=== PATIENT | female | born 1940 | race African-American/Black ===

== ENCOUNTER 2017-05-05 13:31 | Emergency (ER) | payer OTHER, BC ==
[~2017-05-05] VITALS: Ht 160 cm; Wt 90.3 kg
--- NOTE | ~2017-05-05 | EKG ---
[address] [place] [address] ELECTROCARDIOGRAM REPORT Name: ANNETTE ISABEL Room #: [facility]#: [id number] Admission: 05/05/17 Attend Phys: Discharge: 05/05/17 Date of : 44 Report #: [id number] THIS REPORT FOR: //name// [facility] ED Test Date: 2017-05-05 Test Time: 13:50:24 Pat Name: ANNETTE ISABEL Department: Room: Gender: F Wastewater Plant Operator: GLADIS : 1940 Requested By: Bailey Newsome Order Number: [id number] MD: Rigoberto Adams Measurements Intervals [place] Rate: 107 P: 41 AR: 167 QRS: 13 QRSD: 74 T: 31 QT: 365 QTc: 487 Interpretive Statements Sinus tachycardia Poor R wave progression Compared to ECG 02/18/2014 11:19:56 No previous ECGs available for comparison Electronically Signed On 05-06-2017 14:35:10 FILM EDITOR SUPERVISOR by Rigoberto Adams [email or web address] <ELECTRONICALLY SIGNED> By: Rigoberto Adams MD, [facility] 05/06/17 1435 1350 1350 Rigoberto Adams MD, FAC /EPI
[~2017-05-05 13:31] MED LIST: AMITRIPTYLINE H10 M3 PO; AMITRIPTYLINE H25 M2 PO; AMLODIPINE BESY10 MG PO; CENTRUM SILVER1 EAC4 PO; GLUCOPHAGE1000 MG PO; KEFLEX500 M1 PO; KLOR-CON 1010 MEQ PO; LACTINEX CHEWA1 EACH PO; LEVOTHYROXIN0.025 MG PO; LEXAPRO 10 MG T10 M1 PO; LOPRESSOR50 PO; MAGOX 400400 MG PO; METFORMIN HCL500 MG PO; NAPROSYN500 MG PO; NIFEDICAL XL60 MG PO; OMEPRAZOLE20 M2 PO; PRAVACHOL40 MG PO; TOPROL XL50 MG PO; ZESTORETIC 20-1 EAC3 PO
[2017-05-05] MEDS ORDERED: GLUCOPHAGE XR500 MG PO (13:49)
[2017-05-05 14:07] LABS: ABSOLUTE NEUTROPHILS 10.2 thou/uL (1.4-8.2); BASOPHILS 0.5 % (0.0-2.0); EOSINOPHILS 0.6 % (0.0-3.0); HEMATOCRIT 37.4 % (37.0-47.0); HEMOGLOBIN 12.5 gm/dL (12.0-15.0); LYMPHOCYTES 9.5 % (24.0-44.0); MCH 30.3 pg (26.0-34.0); MCHC 33.3 g/dL (28.0-37.0); MCV 91.1 fL (80.0-100.0); MONOCYTES 6.7 % (1.0-8.0); PLATELET COUNT 242 thou/uL (150-400); POLYS 82.7 % (36.0-66.0); RBC 4.11 mil/uL (4.20-5.00); RDW 13.6 % (10.5-14.5); WBC 12.3 thou/uL (4.0-11.0)
[2017-05-05 14:17] LABS: ANION GAP 9 mmol/L (7-16); BUN 22 mg/dL (7-18); CALCIUM 9.9 mg/dL (8.5-10.1); CHLORIDE 101 mmol/L (98-107); CO2 31 mmol/L (21-32); CREATININE 1.4 mg/dL (0.6-1.0); GLUCOSE 177 mg/dL (74-106); POTASSIUM 3.1 mmol/L (3.5-5.1); SODIUM 141 mmol/L (136-145)
[2017-05-05 14:26] LABS: TROPONIN-I < 0.04 ng/mL (<0.06)
[2017-05-05 14:42] LABS: URINE BILIRUBIN 1+ (Negative); URINE BLOOD NEGATIVE (Negative); URINE CLARITY CLEAR; URINE COLOR YELLOW; URINE GLUCOSE-RANDOM* NEGATIVE (Negative); URINE KETONES TRACE (Negative); URINE LEUKOCYTES TRACE (Negative); URINE NITRITE NEGATIVE (Negative); URINE PROTEIN (DIPSTICK) 2+ (Negative); URINE SPECIFIC GRAVITY >= 1.030 (1.005-1.035); URINE UROBILINOGEN 0.2 E.U./dl (0.2-1.0)
[2017-05-05 14:43] LABS: ICTOTEST (BILI CONFIRMATORY) Negative (Negative)
[2017-05-05 14:54] LABS: CRYSTALS None Seen /LPF (None Seen); HYALINE CASTS 0-3 Few /LPF (None Seen); SQUAMOUS 4-10 Moderate /LPF (0-3)
[2017-05-05 14:55] LABS: BACTERIA >30 Many /HPF (None Seen); URINE RBC None Seen /HPF (0-2); URINE WBC 0-5 Rare /HPF (0-5)
[2017-05-05] MEDS ORDERED: ZOFRAN ODT4 MG PO (15:11)
[2017-05-05] MEDS ORDERED: KEFLEX500 M1 PO (15:11)
[2017-05-05 16:06] VITALS: BP 140/71
[2017-05-19] MEDS ORDERED: ASPIR 8181 MG PO (14:04)
[2017-05-19] MEDS ORDERED: MOBIC7.5 MG PO (14:42)
[2017-09-14] MEDS ORDERED: TRAMADOL 50 MG50 MG PO (13:48)
[2017-12-01] MEDS ORDERED: IRON325 PO (13:22)
[2017-12-01] MEDS ORDERED: HYDROCODON-ACE1 EAC7 PO (14:36)
== END 2017-05-05 16:07 | disposition home or self-care (01) ==
LOC: ER 13:31
PROVIDERS: Emergency Medicine
DX: I95.1 Orthostatic hypotension (principal); E87.6 Hypokalemia; N39.0 Urinary tract infection, site not specified; E11.9 Type 2 diabetes mellitus without complications; I10 Essential (primary) hypertension

== ENCOUNTER → 2017-05-19 | Outpatient (CLI) | payer OTHER, BC ==
[~2017-05-19] VITALS: Ht 160 cm; Wt 90.2 kg
[~2017-05-19] MED LIST changes: +ASPIR 8181 MG PO; +GLUCOPHAGE XR500 MG PO; +HYDROCODON-ACE1 EAC7 PO; +IRON325 PO; +MOBIC7.5 MG PO; +TRAMADOL 50 MG50 MG PO; +ZOFRAN ODT4 MG PO
--- NOTE | ~2017-05-19 | HPC ---
[facility] [place] [address] [address] [place] [address] PAIN MANAGEMENT CONSULTATION Name: ANNETTE ISABEL [facility] [id number] Admission: 05/19/17 Attend Phys: Robbin Reinoso DO Discharge: Date of : 42 Report #: [id number] THIS REPORT FOR: //name// CC: Lesly Reinoso HISTORY OF PRESENT ILLNESS: The patient is a pleasant 76-year-old female seen in consultation at the request of Dr. Daigle for assistance with management of chronic low back pain with an acute exacerbation sans trauma several months ago. She notes pain is in the low back and, right posterior leg down to her foot. She has subjective weakness and episodic paresthesia with pain radiating into the foot. She has been started on Elavil for this, which does seem to help. She denies bowel or bladder incontinence changes, though does note that she has some urinary stress incontinence. The patient has tried physical therapy, which ended in February. She was going to the pool 3 times a week, but with this cold weather the past month or so, she has not been doing this. She notes the pain is exacerbated with standing and walking and some relief when she is recumbent. She notes the pain is periodic, aching, crushing and pulling. She rates it 7-8 on a visual analog scale. REVIEW OF SYSTEMS: Complete review of systems attached to the chart and gone over with the patient. She is . She does not smoke or drink alcohol to excess. History of dyslipidemia for which she takes statin type medication. Non-insulin dependent diabetes for which she takes metformin, she is unsure of her hemoglobin A1c status. Hypertension, on multiple medications including metoprolol, amlodipine and lisinopril. Levothyroxine for hypothyroidism, omeprazole p.r.n. for gastroesophageal reflux, Lexapro which she actually takes pretty much p.r.n. as well. Elavil as noted in the chief complaint for diabetic peripheral neuropathy. The patient is retired in the year 1999. Pain impact score is 31/70. PHYSICAL EXAMINATION: This is a 5 feet 3 inches, 200 pounds female, BMI is 35.2 kilograms per meter squared. Subjective pain score is 7 on a VAS at present. She has not fallen in the last 3 months. Cranial nerves 2-12 are grossly intact. Pupils are equal, react to light and accommodation. Extraocular muscles are intact. Thyroid is modestly enlarged, no nodules are noted. She is alert and oriented to person, place and time, judged to be a reasonable historian. Upper extremity strength is preserved. Heart is regular and rhythmical without murmur. Lungs: Clear to auscultation. Has a mildly antalgic gait. Straight leg raise is positive at 30 degrees on the right. Right hip flexion and lower extremity extension strength as well as dorsiflexion strength is limited to 3/5. All other muscles about 4-5 to objective testing. Patellar reflexes are brisk at 2+/4 and symmetric. Achilles reflex is absent on the right and 1/4 in the left. [address] [address] PAIN MANAGEMENT CONSULTATION Name: ANNETTE ISABEL [id number] Admission: 05/19/17 Attend Phys: Robbin Reinoso DO Discharge: Date of : 42 Report #: [id number] DIAGNOSTIC STUDIES: Include MRI from 05/10/2017 noting L5-S1 to have mild reactive edema anteriorly and laterally across the disk space. There is a small circumferential disk bulge here resulting in right greater than left neural foraminal narrowing. ASSESSMENT: Symptomatic lumbar radiculopathy by clinical exam and history, right L5 radicular pattern. RECOMMENDATION: We will start the patient on meloxicam 7.5 b.i.d. We talked about moving forward with epidural injection under fluoroscopy right of midline L5-S1. We will try conservative therapy first. Recommend the patient return to physical therapy including her water aerobics. Follow up in 2 weeks if symptoms continue unabated on the nonsteroidal anti-inflammatory agent. We will move forward with epidural injection at that time. Thank you for allowing me to participate in the patient's care. I will keep you abreast of her progress. <ELECTRONICALLY SIGNED> By: Robbin Reinoso DO 05/24/17 0725 1557 0449 Robbin Reinoso DO /nt
[2017-05-19 14:04] VITALS: BP 164/115
== END ==
LOC: PAIN 07:24
DX: M54.16 Radiculopathy, lumbar region (principal)

== ENCOUNTER → 2017-07-21 | Outpatient (CLI) | payer OTHER, BC ==
[~2017-07-21] VITALS: Ht 160 cm; Wt 89.7 kg
[~2017-07-21] MED LIST changes: -HYDROCODON-ACE1 EAC7 PO; -IRON325 PO; -TRAMADOL 50 MG50 MG PO
--- NOTE | ~2017-07-21 | HPC ---
[facility] [place] [address] [place] [address] PAIN MANAGEMENT CONSULTATION Name: ANNETTE ISABEL [facility] [id number] Admission: 07/21/17 Attend Phys: Robbin Reinoso DO Discharge: Date of : 42 Report #: [id number] THIS REPORT FOR: //name// CC: Lesly Reinoso The patient is a 36-year-old female, prior seen 06/23/2017, diagnosed with lumbar radiculopathy. We did an epidural injection at that time. Unfortunately, this really afforded only nominal relief. She notes pain continues to be problematic, rates it a 10/10. It is in the right low back and buttock though on further discussion, she states it is in her leg, but relates only in the very proximal aspect of the right leg. Lower extremity strength is preserved. Straight leg raise is equivocal, but Marquise test is grossly positive on the right side. Very tender over the right SI area. Positive Gaenslen's test on this side. Again, lower extremity strength is otherwise symmetric. PHYSICAL EXAMINATION: Blood pressure is elevated at 129/103, pulse 108, respirations 16. Otherwise, physical exam is unchanged. ASSESSMENT: Symptomatic sacroiliac mediated pain. The patient had no relief with epidural injection in the past. RECOMMENDATION: 1. We will refer to physical therapy for core strengthening exercises. 2. Right SI joint injection under fluoroscopy. 3. Follow up in 3 weeks to reevaluate. ASSESSMENT: Symptomatic right sacroiliac joint pain, lumbosacral spondylosis without myelopathy. PROCEDURE: After written informed consent was obtained, the patient was taken to the fluoroscopy suite and placed in prone position. After sterile prep and drape, skin wheal was raised. A 22-gauge stylet needle was placed to contact the inferior aspect of the right SI joint. Negative aspiration was accomplished. A 0.5 mL of Omnipaque injected, which showed spread within the joints. This was followed with 40 mg triamcinolone plus 2 mL of 0.5% preservative-free bupivacaine. Needle was removed, area was cleansed, Band-Aids applied. The patient was monitored for an appropriate period of time, discharged in good and stable condition, noting dramatic improvement of baseline pain, in fact noting pain was absent on her right SI area. We will plan on moving forward with physical therapy. Follow up in 3 weeks for reevaluation, cancel if doing well. [address] [address] PAIN MANAGEMENT CONSULTATION Name: ANNETTE ISABEL Room #: REG [facility] [place]#: [id number] Admission: 07/21/17 Attend Phys: Robbin Reinoso DO Discharge: Date of : 42 Report #: [id number] Fluoroscopy time was under 15 seconds. <ELECTRONICALLY SIGNED> By: Robbin Reinoso DO 07/24/17 0943 0924 1304 Robbin Reinoso DO /varinder
[2017-07-21 14:11] VITALS: BP 129/103
== END | disposition home or self-care (01) ==
LOC: PAIN 07:21
DX: M53.3 Sacrococcygeal disorders, not elsewhere classified (principal); M47.817 Spondylosis without myelopathy or radiculopathy, lumbosacral region

== ENCOUNTER → 2017-09-14 | Outpatient (CLI) | payer OTHER, BC ==
[~2017-09-14] VITALS: Ht 160 cm; Wt 90.4 kg
[~2017-09-14] MED LIST changes: +TRAMADOL 50 MG50 MG PO
--- NOTE | ~2017-09-14 | HPC ---
[facility] [address] [address] [place] [address] PAIN MANAGEMENT CONSULTATION Name: ANNETTE ISABEL [facility] [id number] Admission: 09/14/17 Attend Phys: Robbin Reinoso DO Discharge: Date of : 42 Report #: [id number] THIS REPORT FOR: //name// CC: Lesly Reinoso DATE OF SERVICE: 09/14/2017 The patient is a very pleasant 76-year-old female. She was originally seen in consultation on 05/19/2017. We trialed some meloxicam with no efficacy, midline epidural injection at L5-S1 with really dwindling efficacy as well. We did a right SI joint injection 07/21/2017, which did give good relief for about 6 weeks. Pain has begun to recur, but it is a little bit different. Pain is in the right low back, buttock, and leg, posterior aspect of the leg down to the foot. PHYSICAL EXAMINATION: Shows a 76-year-old female, BMI is 35.3 kg per meter squared. Vital signs are stable as noted in the EMR. Grossly positive straight leg raise on the right. Right leg shows diminished strength globally, about 3/5 to all muscle groups tested, about 4/5 on the contralateral left side. Right Achilles reflex is absent, 1/4 in the left. Patellar reflexes are generally symmetric, 1/4. She does have some pain with resistance to piriformis contraction on the right, though this is equivocal and not consistent. DIAGNOSTIC STUDIES: Include MRI from 05/10/2017 noting small circumferential disk bulge with neuroforaminal narrowing, right greater than left, L5-S1. ASSESSMENT: Symptomatic lumbar radiculopathy by clinical exam and history, right L5 radicular pain pattern. RECOMMENDATION: Right L5-S1 transforaminal epidural injection under fluoroscopy today, I have taken the liberty of writing for tramadol 50 mg p.r.n. needed for pain. Follow up in 2 weeks for evaluation. If she still has ongoing pain, we will consider EMG versus a neurosurgical consult. PROCEDURE: Right L5-S1 transforaminal lumbar epidural injection under fluoroscopy. PROCEDURE NOTE: After both written and informed consent to include risk of spinal cord damage, increased pain, weakness and dural puncture, the patient was taken to the fluoroscopy suite, placed in the prone position. After sterile prep and drape, a skin wheal with lidocaine was raised. A 22-gauge epidural Tuohy needle was inserted in the L5-S1 on the right with good loss to resistance. Negative aspiration for cerebrospinal fluid or blood was noted. Then 1 mL of Omnipaque under biplanar fluoroscopy showed good spread within the epidural space. This was followed with 60 mg of triamcinolone plus 1 mL of 1.5% [address] [address] PAIN MANAGEMENT CONSULTATION Name: ANNETTE ISABEL Room #: REG [facility]#: [id number] Admission: 09/14/17 Attend Phys: Robbin Reinoso DO Discharge: Date of : 42 Report #: [id number] preservative-free Xylocaine, 0.5 mL Xylocaine was then injected to flush the needle; it was removed. The patient was monitored for an appropriate period of time and discharged in good and stable condition. The patient was discharged in good and stable condition. Please note that her pain score was absent on discharge. <ELECTRONICALLY SIGNED> By: Robbin Reinoso DO 09/18/17 0710 1535 1958 Robbin Reinoso DO /nt
[2017-09-14 12:52] VITALS: BP 141/86
== END | disposition home or self-care (01) ==
LOC: PAIN 06:57
DX: M54.16 Radiculopathy, lumbar region (principal); G89.29 Other chronic pain; Z87.891 Personal history of nicotine dependence; Z87.440 Personal history of urinary (tract) infections; Z79.899 Other long term (current) drug therapy; Z79.82 Long term (current) use of aspirin; Z98.890 Other specified postprocedural states

== ENCOUNTER 2017-11-03 10:08 | Inpatient (IN) | payer OTHER, BC ==
[2017-11-03] VITALS (7 sets, daily range): BP systolic 115–167; BP diastolic 60–81
[~2017-11-03] VITALS: Ht 160 cm; Wt 88.5 kg
--- NOTE | ~2017-11-03 | EKG ---
[address] [employer] [place] [address] ELECTROCARDIOGRAM REPORT Name: ANNETTE ISABEL Room #: 456-P [facility] IN .R.#: [id number] Admission: 11/03/17 Attend Phys: Juan Meyer MD Discharge: Date of : 42 Report #: [id number] THIS REPORT FOR: //name// [facility] ED Test Date: 2017-11-03 Test Time: 10:49:06 Pat Name: ANNETTE ISABEL Department: Room: [facility] Gender: F Operations Consultant: nilsa : 1940 Requested By: April Bess Order Number: [id number] MD: Prem Mckeon Measurements Intervals [place] Rate: 104 P: 17 SC: 174 QRS: -2 QRSD: 80 T: 48 QT: 375 QTc: 494 Interpretive Statements Sinus tachycardia Abnormal R-wave progression, late transition LVH by voltage Borderline T abnormalities, anterior leads Compared to ECG 05/05/2017 13:50:24 Left ventricular hypertrophy now present T-wave abnormality now present Poor R-wave progression no longer present Electronically Signed On 11-03-2017 15:26:41 CDT by Prem Mckeon [email or web address] <ELECTRONICALLY SIGNED> By: Prem Mckeon MD 11/03/17 1526 1049 1049 Prem Mckeon MD /EPI
[2017-11-03 10:38] LABS: HEMATOCRIT 35.8 % (37.0-47.0); MCH 30.5 pg (26.0-34.0); MCHC 33.4 g/dL (28.0-37.0); MCV 91.4 fL (80.0-100.0); PLATELET COUNT 258 thou/uL (150-400); RBC 3.92 mil/uL (4.20-5.00); RDW 13.9 % (10.5-14.5); WBC 8.7 thou/uL (4.0-11.0)
[2017-11-03 10:48] LABS: ANION GAP 9 mmol/L (7-16); BUN 16 mg/dL (7-18); CALCIUM 10.2 mg/dL (8.5-10.1); CHLORIDE 100 mmol/L (98-107); CO2 29 mmol/L (21-32); CREATININE 1.4 mg/dL (0.6-1.0); GLUCOSE 266 mg/dL (74-106); SODIUM 138 mmol/L (136-145)
[2017-11-03 10:55] LABS: POTASSIUM 2.8 mmol/L (3.5-5.1)
[2017-11-03 10:57] LABS: ALBUMIN 4.1 g/dL (3.4-5.0); LIPASE 167 U/L (73-393); SGOT 16 U/L (15-37); SGPT 27 U/L (30-65); TOTAL BILIRUBIN 0.4 mg/dL (<0.1-1.0); TOTAL PROTEIN 7.9 g/dL (6.4-8.2); TROPONIN-I <0.06 ng/mL (<0.06)
[2017-11-03 11:24] LABS: URINE BILIRUBIN NEGATIVE (Negative); URINE BLOOD NEGATIVE (Negative); URINE CLARITY CLEAR; URINE COLOR YELLOW; URINE GLUCOSE-RANDOM* NEGATIVE (Negative); URINE KETONES NEGATIVE (Negative); URINE NITRITE-REFLEX NEGATIVE (Negative); URINE PROTEIN (DIPSTICK) TRACE (Negative); URINE UROBILINOGEN 0.2 E.U./dl (0.2-1.0)
[2017-11-03 11:26] LABS: URINE LEUKOCYTES-REFLEX TRACE (Negative)
[2017-11-03 12:05] LABS: ABSOLUTE NEUTROPHILS 5.5 thou/uL (1.4-8.2); ATYPICAL LYMPHS 1 %
[2017-11-03 12:07] LABS: ANISOCYTOSIS SLIGHT; LARGE PLATELETS SEVERAL
[2017-11-03 12:08] LABS: CALCIUM 9.6 mg/dL (8.5-10.1); CREATININE 1.4 mg/dL (0.6-1.0)
[2017-11-03 19:39] LABS: MAGNESIUM 1.2 mg/dL (1.8-2.4); POTASSIUM 3.3 mmol/L (3.5-5.1)
[2017-11-04 04:45] VITALS: BP 146/75
[2017-11-04 05:22] LABS: HEMATOCRIT 28.9 % (37.0-47.0); MCH 31.2 pg (26.0-34.0); MCHC 34.3 g/dL (28.0-37.0); RBC 3.18 mil/uL (4.20-5.00); RDW 13.6 % (10.5-14.5); WBC 6.4 thou/uL (4.0-11.0)
[2017-11-04 05:29] LABS: CALCIUM 8.7 mg/dL (8.5-10.1); POTASSIUM 3.6 mmol/L (3.5-5.1)
[2017-11-04 05:31] LABS: MAGNESIUM 1.5 mg/dL (1.8-2.4); POTASSIUM 3.6 mmol/L (3.5-5.1)
[2017-11-04 05:37] LABS: HEMOGLOBIN 9.9 gm/dL (12.0-15.0)
[2017-11-04 08:27] VITALS: BP 146/71
[2017-11-04 15:51] VITALS: BP 163/76
[2017-11-04 16:44] LABS: MAGNESIUM 1.6 mg/dL (1.8-2.4); POTASSIUM 3.1 mmol/L (3.5-5.1)
[2017-11-04 17:45] VITALS: BP 163/76
[2017-11-04 20:31] VITALS: BP 170/82
[2017-11-04 21:04] LABS: MAGNESIUM 1.5 mg/dL (1.8-2.4); POTASSIUM 3.4 mmol/L (3.5-5.1)
[2017-11-05 01:55] VITALS: BP 180/81
[2017-11-05 02:53] LABS: HEMATOCRIT 29.7 % (37.0-47.0); MCH 30.9 pg (26.0-34.0); MCHC 33.6 g/dL (28.0-37.0); MCV 92.1 fL (80.0-100.0); RBC 3.22 mil/uL (4.20-5.00); RDW 13.6 % (10.5-14.5); WBC 5.2 thou/uL (4.0-11.0)
[2017-11-05 03:02] LABS: CALCIUM 8.3 mg/dL (8.5-10.1); CREATININE 0.8 mg/dL (0.6-1.0); POTASSIUM 3.4 mmol/L (3.5-5.1)
[2017-11-05 08:20] VITALS: BP 159/86
[2017-11-05] MEDS ORDERED: KEFLEX500 M1 PO (11:22)
[2017-11-05 12:37] VITALS: BP 159/86
== END 2017-11-05 14:12 | disposition home or self-care (01) | DRG 690 ==
LOC: ER 10:08 → EROBS 11:56 → 4W 13:18
PROVIDERS: Hospitalist; Physician Assistant
DX: N39.0 Urinary tract infection, site not specified (principal); E86.0 Dehydration; I12.9 Hypertensive chronic kidney disease with stage 1 through stage 4 chronic kidney disease, or unspecified chronic kidney disease; I95.1 Orthostatic hypotension; N18.9 Chronic kidney disease, unspecified; E78.5 Hyperlipidemia, unspecified; E11.22 Type 2 diabetes mellitus with diabetic chronic kidney disease; E78.00 Pure hypercholesterolemia, unspecified; E03.9 Hypothyroidism, unspecified; E87.6 Hypokalemia; Z79.4 Long term (current) use of insulin; Z79.899 Other long term (current) drug therapy; Z79.2 Long term (current) use of antibiotics; Z79.82 Long term (current) use of aspirin
CPT/HCPCS: 10045

== ENCOUNTER 2018-03-18 12:47 | Inpatient (IN) | payer OTHER, BC ==
[~2018-03-18] VITALS: Ht 160 cm; Wt 90.7 kg
[~2018-03-18 12:47] MED LIST changes: +HYDROCODON-ACE1 EAC7 PO; +IRON325 PO; -LEVOTHYROXIN0.025 MG PO; -OMEPRAZOLE20 M2 PO; +OMEPRAZOLE40 MG PO; +SYNTHROID25 MC1 PO
[2018-03-18 12:49] VITALS: BP 173/77
[2018-03-18 13:41] LABS: ABSOLUTE NEUTROPHILS 5.5 thou/uL (1.4-8.2); BASOPHILS 0.5 % (0.0-2.0); HEMATOCRIT 32.6 % (37.0-47.0); HEMOGLOBIN 10.8 gm/dL (12.0-15.0); LYMPHOCYTES 6.9 % (24.0-44.0); MCH 30.1 pg (26.0-34.0); MCHC 33.2 g/dL (28.0-37.0); MCV 90.9 fL (80.0-100.0); MONOCYTES 4.5 % (1.0-8.0); PLATELET COUNT 256 thou/uL (150-400); POLYS 86.1 % (36.0-66.0); RBC 3.59 mil/uL (4.20-5.00); WBC 6.4 thou/uL (4.0-11.0)
[2018-03-18 13:47] LABS: CALCIUM 9.6 mg/dL (8.5-10.1); CREATININE 1.2 mg/dL (0.6-1.0); POTASSIUM 5.5 mmol/L (3.5-5.1)
[2018-03-18 13:55] LABS: URINE BILIRUBIN NEGATIVE (Negative); URINE BLOOD NEGATIVE (Negative); URINE CLARITY CLEAR; URINE COLOR YELLOW; URINE GLUCOSE-RANDOM* 3+ (Negative); URINE KETONES NEGATIVE (Negative); URINE LEUKOCYTES-REFLEX NEGATIVE (Negative); URINE NITRITE-REFLEX NEGATIVE (Negative); URINE PROTEIN (DIPSTICK) NEGATIVE (Negative); URINE SPECIFIC GRAVITY <= 1.005 (1.005-1.035); URINE UROBILINOGEN 0.2 E.U./dl (0.2-1.0)
[2018-03-18 16:48] VITALS: BP 172/76
[2018-03-18 18:03] LABS: ALBUMIN 3.5 g/dL (3.4-5.0); TOTAL PROTEIN 7.2 g/dL (6.4-8.2)
[2018-03-18 18:40] VITALS: BP 128/67
[2018-03-18 19:04] LABS: TSH 1.512 uIU/mL (0.358-3.740)
[2018-03-19 04:21] LABS: CALCIUM 8.4 mg/dL (8.5-10.1); MAGNESIUM 2.4 mg/dL (1.8-2.4)
[2018-03-19 04:34] VITALS: BP 146/75
[2018-03-19 04:43] LABS: POTASSIUM 3.3 mmol/L (3.5-5.1)
[2018-03-19 04:44] LABS: HEMATOCRIT 29.8 % (37.0-47.0); MCH 30.2 pg (26.0-34.0); MCHC 33.6 g/dL (28.0-37.0); MCV 89.9 fL (80.0-100.0); RBC 3.31 mil/uL (4.20-5.00); RDW 14.2 % (10.5-14.5); WBC 5.6 thou/uL (4.0-11.0)
--- NOTE | 2018-03-19 06:37 | NUR ---
A/O, arrived around 1930; patient tried to get up but felt faint; patient was encouraged to have bed rest, using bed lake;vss, afebrile.Patient temprature elevated thsi am, see the chart; CAR REPAIRER PULLMAN Marcella has been reported to, Tylenol given, will keep monitoring patient; patient was alert and oriented *4 during fever. Doctor;s notes checked, fever had been aware by Dr. Rose.
[2018-03-19 07:14] VITALS: BP 129/66
[2018-03-19] MEDS ORDERED: INVOKANA300 MG PO (09:31)
[2018-03-19] MEDS ORDERED: TOPROL XL100 MG PO (09:31)
[2018-03-19] MEDS ORDERED: LEXAPRO 10 MG T10 M2 PO (09:31)
[2018-03-19] MEDS ORDERED: NEURONTIN 300300 M1 PO (09:32)
[2018-03-19] MEDS ORDERED: CLONIDINE0.1 PO (09:33)
--- NOTE | 2018-03-19 10:20 | NUR ---
cm visited with pt at bedside, pt is a & o x 3, pleasant and able to make her needs know. intro to cm and transition of plan. pt reported " live home alone, have support from family and friends if needed. independent at home, still drive. manage own medication. 2 steps to enter from garage, 10 to basement with hand rail but don't have to go down there. have walker, shower bench, commode, and grab bars in bathroom. do not use those just got them in case needed. no falls or injury in last year. no past home health or rehab."/nicola. pt daughter leighton at bedside as well. no concerns voiced. will cont following as needed for dc needs. dcp home
[2018-03-19 14:29] LABS: ALBUMIN 3.4 g/dL (3.4-5.0); DIRECT BILIRUBIN < 0.1 mg/dL (<0.1-0.3); SGOT 38 U/L (15-37); SGPT 49 U/L (30-65); TOTAL BILIRUBIN 0.3 mg/dL (<0.1-1.0); TOTAL PROTEIN 6.9 g/dL (6.4-8.2)
[2018-03-19 15:07] VITALS: BP 110/72
--- NOTE | 2018-03-19 18:32 | NUR ---
Pt vs stable, and pt states she is in much better shape today then she was when she came in [place]. Pt is able to ambulate from the bed to the toilet on her own with standby assists. Pt worked with pt and ot and has been dc from their end. "Invocana" at the pts bin, home meds that pharmacy had requested since we do not carry this. Seen by Dr. Bojorquez, other labs and diagnostics ordered. No complaints or issues identified.
[2018-03-19 19:17] VITALS: BP 151/71
[2018-03-20 03:45] VITALS: BP 141/65
[2018-03-20 04:13] LABS: HEMATOCRIT 30.9 % (37.0-47.0); HEMOGLOBIN 10.2 gm/dL (12.0-15.0); MCH 30.1 pg (26.0-34.0); MCV 91.1 fL (80.0-100.0); RBC 3.39 mil/uL (4.20-5.00); RDW 13.8 % (10.5-14.5); WBC 4.2 thou/uL (4.0-11.0)
[2018-03-20 04:25] LABS: CALCIUM 8.4 mg/dL (8.5-10.1); CREATININE 0.9 mg/dL (0.6-1.0); POTASSIUM 3.4 mmol/L (3.5-5.1)
--- NOTE | 2018-03-20 05:06 | NUR ---
PATIENTS CARES WERE ASSUMED AT SHIFT CHANGE. PATIENT WAS ASSESSED AND MEDS WERE PASSED. HOURLY ROUNDING WAS DONE. THE BED WAS IN LOW AND LOCKED POSITION
[2018-03-20 07:23] VITALS: BP 141/77
--- NOTE | 2018-03-20 12:49 | NUR ---
Pt vs stable, started on her home meds invocana this am. Pt is able to ambulate on her own, gait is steady.
[2018-03-20 14:26] VITALS: BP 153/74
[2018-03-21 04:36] LABS: CALCIUM 8.6 mg/dL (8.5-10.1); CREATININE 0.7 mg/dL (0.6-1.0); MAGNESIUM 1.9 mg/dL (1.8-2.4)
--- NOTE | 2018-03-21 04:41 | NUR ---
AMBULATES TO BATHROOM AD MIRIAN. DENIES PAIN. AFEBRILE.
[2018-03-21 04:52] LABS: POTASSIUM 2.8 mmol/L (3.5-5.1)
[2018-03-21 04:54] LABS: HEMATOCRIT 29.3 % (37.0-47.0); HEMOGLOBIN 9.5 gm/dL (12.0-15.0); MCH 29.2 pg (26.0-34.0); MCHC 32.5 g/dL (28.0-37.0); MCV 89.8 fL (80.0-100.0); RBC 3.26 mil/uL (4.20-5.00); RDW 14.3 % (10.5-14.5); WBC 3.6 thou/uL (4.0-11.0)
[2018-03-21 05:13] VITALS: BP 167/79
[2018-03-21 08:46] VITALS: BP 150/88
[2018-03-21] MEDS ORDERED: LEVAQUIN 750 M750 MG PO (12:11)
[2018-03-21 12:54] VITALS: BP 150/88
--- NOTE | 2018-03-21 14:48 | NUR ---
Pt vs stable, no fever was noted the night prior and this am. Tolerating diet well and is able to amulate on her own from bed to toilet and the halls. K replacement done (PO and IV) requested labs to be redrawn 4 hours after last dose, K now at 3.5. Seen by Dr. Mitch dc instructions given to the pt, home meds returned to the pt. Pt is waiting for her family to pick her up.
[2018-03-23 06:11] LABS: ADENOVIRUS Negative (Negative); INFLUENZA A Negative (Negative); INFLUENZA B Negative (Negative); METAPNEUMOVIRUS Negative (Negative); PARAINFLUENZA 1 Negative (Negative); PARAINFLUENZA 2 Negative (Negative); PARAINFLUENZA 3 Negative (Negative); RHINOVIRUS Negative (Negative); RSV A Negative (Negative); RSV B Negative (Negative)
== END 2018-03-21 16:25 | disposition home or self-care (01) | DRG 871 ==
LOC: ER 12:47 → 4W 15:55 → EROBS 15:55 → 4W 18:41 → ENTRNSPT 03-21 15:05 → EDTRNSPTSTS 03-21 15:06 → 4W 03-21 16:25
PROVIDERS: Emergency Medicine; Specialist; ADMIT Internal Medicine
DX: A41.9 Sepsis, unspecified organism (principal); E43 Unspecified severe protein-calorie malnutrition; N17.9 Acute kidney failure, unspecified; I10 Essential (primary) hypertension; E87.5 Hyperkalemia; F32.9 Major depressive disorder, single episode, unspecified; E05.90 Thyrotoxicosis, unspecified without thyrotoxic crisis or storm; E78.5 Hyperlipidemia, unspecified; E83.42 Hypomagnesemia; E03.9 Hypothyroidism, unspecified; B00.9 Herpesviral infection, unspecified; E87.6 Hypokalemia; E11.9 Type 2 diabetes mellitus without complications; E66.9 Obesity, unspecified; Z68.35 Body mass index [BMI] 35.0-35.9, adult; Z90.49 Acquired absence of other specified parts of digestive tract; Z90.710 Acquired absence of both cervix and uterus; Z87.828 Personal history of other (healed) physical injury and trauma; Z79.82 Long term (current) use of aspirin; Z79.899 Other long term (current) drug therapy; Z88.8 Allergy status to other drugs, medicaments and biological substances
CPT/HCPCS: 10045

== ENCOUNTER 2018-05-08 08:21 | Inpatient (IN) | payer OTHER, BC ==
[~2018-05-08] VITALS: Ht 160 cm; Wt 88.0 kg
[~2018-05-08 08:21] MED LIST changes: +CLONIDINE0.1 PO; +FARXIGA10 MG PO; +LEVAQUIN 750 M750 MG PO; +LEXAPRO 10 MG T10 M2 PO; +NEURONTIN 300300 M1 PO; +TOPROL XL100 MG PO
[2018-05-08 08:22] VITALS: BP 127/73
--- NOTE | 2018-05-08 08:56 | EKG ---
[place] [address] [facility] [place] [address] ELECTROCARDIOGRAM REPORT Name: ANNETTE ISABEL Room #: [facility]#: [id number] Admission: Attend Phys: Discharge: Date of : 42 Report #: [id number] THIS REPORT FOR: //name// [facility] ED Test Date: 2018-05-08 Test Time: 08:48:48 Pat Name: ANNETTE ISABEL Department: Room: Gender: F Mobile Architect: TUSHAR : 1940 Requested By: Delfino Ramírez Order Number: [id number] MD: Rigoberto Adams Measurements Intervals [place] Rate: 87 P: -8 RI: 150 QRS: 11 QRSD: 110 T: 49 QT: 368 QTc: 443 Interpretive Statements Sinus rhythm Poor R wave progression Cannot rule out inferior infarct, age indeterminate Compared to ECG 11/03/2017 10:49:06 Low QRS voltage now present Sinus tachycardia no longer present Nonspecific change in the ST and T-wave segments Electronically Signed On 05-08-2018 8:56:43 PUBLIC RELATIONS PLAYER by Rigoberto Adams [email or web address] <ELECTRONICALLY SIGNED> By: Rigoberto Adams MD, [facility] 05/08/18 0856 0848 0848 Rigoberto Adams MD, [facility] /EPI
[2018-05-08 09:47] LABS: ABSOLUTE NEUTROPHILS 4.4 thou/uL (1.4-8.2); BASOPHILS 0.1 % (0.0-2.0); EOSINOPHILS 0.4 % (0.0-3.0); HEMATOCRIT 34.5 % (37.0-47.0); HEMOGLOBIN 11.9 gm/dL (12.0-15.0); LYMPHOCYTES 7.1 % (24.0-44.0); MCH 29.6 pg (26.0-34.0); MCHC 34.6 g/dL (28.0-37.0); MCV 85.5 fL (80.0-100.0); PLATELET COUNT 169 thou/uL (150-400); POLYS 89.4 % (36.0-66.0); RBC 4.04 mil/uL (4.20-5.00); RDW 14.4 % (10.5-14.5); WBC 4.9 thou/uL (4.0-11.0)
[2018-05-08 09:55] LABS: ANION GAP 9 mmol/L (7-16); BUN 16 mg/dL (7-18); CALCIUM 9.9 mg/dL (8.5-10.1); CHLORIDE 97 mmol/L (98-107); CO2 28 mmol/L (21-32); CREATININE 1.1 mg/dL (0.6-1.0); GLUCOSE 231 mg/dL (74-106); POTASSIUM 3.2 mmol/L (3.5-5.1); SODIUM 134 mmol/L (136-145)
[2018-05-08 10:00] LABS: APTT 25.7 Seconds (24.5-32.8); PROTIME 10.5 Seconds (9.3-11.4)
[2018-05-08 10:04] LABS: ALBUMIN 3.9 g/dL (3.4-5.0); SGOT 30 U/L (15-37); SGPT 45 U/L (30-65); TOTAL BILIRUBIN 0.4 mg/dL (<0.1-1.0); TOTAL PROTEIN 7.8 g/dL (6.4-8.2); TROPONIN-I <0.06 ng/mL (<0.06)
[2018-05-08] MEDS ORDERED: POTASSIUM20 PO (10:53)
[2018-05-08 11:05] VITALS: BP 130/67
[2018-05-08 11:09] VITALS: BP 128/67
--- NOTE | 2018-05-08 15:18 | NUR ---
PT ADMITTED REALTED TO FEVER, WEAKNESS, RECURRENT FALLS. CM REVIEWED CHART AND SPOKE WITH CARE TEAM. CM MET WITH PT AT BEDSIDE. PT IS A&O X4. CM ROLE INTRODUCED. PT INDICATED SHE LIVES IN A HOUSE ALONE WITH 2 STEPS TO ENTER AND A FLIGHT OF STEPS TO BASEMENT. PT INDICATED SHE HAD BEEN INDEPENDENT WITH GAIT AND ADLS [facility]. PT INDICATED SHE HAD A BSC, FWW, SHOWERCHAIR. PT INDICATED NO HH OR SKILLED. PT INDICATED SHE PLANS TO RETURN HOME ONCE MEDICALLY STABLE. CM TO FOLLOW INDICATED WITH DC PLANNING.
--- NOTE | 2018-05-08 15:37 | NUR ---
ADMITTED FROM ER UNDER 'S CARE. SEEN BY MEDICAL AIDE BOLA AND AT BEDSIDE. LOW GRADE FEVER UPON ADMISSION. IV WAS REPLACED BY VASCULAR ACCESS TEAM. LUNGS CTA BILAT. VSS AND POC GLUCOSE STABLE UPON ARRIVAL. NO S/S ACUTE DISTESS NOTED OR REPORTED AT THIS TIME. WILL CONT TO MONITOR FOR ANY CHANGES IN CONDITION. SON AND DTR AT BEDSIDE. WILL CONT TO MINITOR FOR ANY CHANGES IN CONDITION.
[2018-05-08 15:50] VITALS: BP 158/86
[2018-05-08 16:22] LABS: URINE BILIRUBIN NEGATIVE (Negative); URINE BLOOD TRACE (Negative); URINE CLARITY CLEAR; URINE COLOR YELLOW; URINE GLUCOSE-RANDOM* 3+ (Negative); URINE KETONES NEGATIVE (Negative); URINE LEUKOCYTES-REFLEX NEGATIVE (Negative); URINE NITRITE-REFLEX NEGATIVE (Negative); URINE PROTEIN (DIPSTICK) 1+ (Negative); URINE UROBILINOGEN 0.2 E.U./dl (0.2-1.0)
[2018-05-08 16:38] LABS: BACTERIA-REFLEX 1-9 Few /HPF (None Seen); CASTS None Seen /LPF (None Seen); SQUAMOUS 0-3 Few /LPF (0-3); URINE RBC 3-10 Few /HPF (0-2); URINE WBC-REFLEX >25 Many /HPF (0-5)
[2018-05-08 16:39] LABS: AMORPHOUS URATES Few /LPF (None Seen)
[2018-05-08 19:37] VITALS: BP 141/82
--- NOTE | 2018-05-08 19:58 | NUR ---
STRAIGHT CATH PERFORMED FOR URINE CULTURE SPECIMEN. DR LEELEE GAUTHIER ORDERED 2ND SPECIMEN AFTER PREVIOUS ONE DONE AT 1600 TODAY TO RECHECK LAB RESULTS. VIRAL NASAL SWAB DONE. CATHED FOR 400ML CLEAR YELLOW URINE. TEMP ELEVATED, C/O SEVERE HEADACHE WITH MILD SENSITIVITY TO BRIGHT LIGHT. ALERT, ORIENTED X 4. BLOOD CULTURES DRAWN.
[2018-05-08 20:06] LABS: URINE BILIRUBIN NEGATIVE (Negative); URINE BLOOD TRACE (Negative); URINE CLARITY CLEAR; URINE COLOR YELLOW; URINE GLUCOSE-RANDOM* 3+ (Negative); URINE KETONES NEGATIVE (Negative); URINE LEUKOCYTES NEGATIVE (Negative); URINE NITRITE NEGATIVE (Negative); URINE PROTEIN (DIPSTICK) 1+ (Negative); URINE SPECIFIC GRAVITY 1.015 (1.005-1.035); URINE UROBILINOGEN 0.2 E.U./dl (0.2-1.0)
[2018-05-08 20:16] LABS: CASTS None Seen /LPF (None Seen); CRYSTALS None Seen /LPF (None Seen); SQUAMOUS 0-3 Few /LPF (0-3); URINE RBC 0-2 Rare /HPF (0-2); URINE WBC None Seen /HPF (0-5)
[2018-05-08 20:17] LABS: BACTERIA 1-9 Few /HPF (None Seen)
[2018-05-09 04:21] VITALS: BP 138/76
[2018-05-09 06:06] LABS: ABSOLUTE NEUTROPHILS 2.2 thou/uL (1.4-8.2); BASOPHILS 0.9 % (0.0-2.0); EOSINOPHILS 1.7 % (0.0-3.0); HEMATOCRIT 32.6 % (37.0-47.0); HEMOGLOBIN 11.1 gm/dL (12.0-15.0); LYMPHOCYTES 22.5 % (24.0-44.0); MCH 29.5 pg (26.0-34.0); MCHC 34.1 g/dL (28.0-37.0); MCV 86.5 fL (80.0-100.0); MONOCYTES 8.6 % (1.0-8.0); POLYS 66.3 % (36.0-66.0); RBC 3.77 mil/uL (4.20-5.00); RDW 14.6 % (10.5-14.5); WBC 3.3 thou/uL (4.0-11.0)
[2018-05-09 06:18] LABS: CALCIUM 8.8 mg/dL (8.5-10.1); CREATININE 0.8 mg/dL (0.6-1.0); POTASSIUM 3.1 mmol/L (3.5-5.1)
--- NOTE | 2018-05-09 06:26 | NUR ---
temp 98.2 this morning. received one dose of tylenol for elevated temp at HS. able to stand, pivot to BSC this morning x 1 assist . voided 900ml clear yellow urine. alert, oriented x 4. denies pain other than headache. no nausea.
[2018-05-09 07:15] LABS: LARGE PLATELETS FEW
[2018-05-09 07:16] LABS: PLATELET COUNT 151 thou/uL (150-400)
[2018-05-09 07:42] VITALS: BP 160/75
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
[2018-05-09 14:35] VITALS: BP 157/74
[2018-05-09 19:35] VITALS: BP 157/95
--- NOTE | 2018-05-09 19:51 | NUR ---
PATIENT TRANSFERRED FROM [facility], REPORT GIVEN TO YEIMY/LAYLA FROM DHARMESH/ANIKET. PATIENT ALERT AND ORIENTED X 4. UP AD MIRIAN. NO C/O PAIN. WILL CONTINUE TO MONITOR.
--- NOTE | 2018-05-10 04:42 | NUR ---
PATIENT ALERT AND ORIENTED X4. ARRIVED ON UNIT VIA W/C WITH 4W PERSONEL. VSS. IV FLUIDS RUNNING. WALKED IN HALLS. ACCUCHECK 253, RECIEVED 6UNITS LISPRO INSULIN. C/O ONLY MILD ACHENESS IN ABD. SLEPT MOST OF NIGHT.
[2018-05-10 08:37] VITALS: BP 151/95
--- NOTE | 2018-05-10 10:28 | NUR ---
PATIENT CARE WAS ASSUMED AT 0715.PATIENT IS ALERT AND ORIENTED X4.PATIENT HAS NO COMPLAINS OF PAIN AT THIS TIME.PATIENT IS ABLE TO GET UP WITH STAND BY ASSIST.IV IS INTACT WITH FLUIDS INFUSING.PATIENT WANTS TO TAKE A SHOWER IN THE AM,WILL SET PATIENT UP FOR SHOWER.CALL LIGHT, PHONE, AND PERSONAL BELONGINGS ARE WITHIN REACH.
[2018-05-10 11:09] LABS: ANA INTERPRETATION Negative (Negative)
[2018-05-10 11:47] LABS: HEMATOCRIT 32.6 % (37.0-47.0); HEMOGLOBIN 11.3 gm/dL (12.0-15.0); MCH 29.8 pg (26.0-34.0); MCHC 34.6 g/dL (28.0-37.0); MCV 86.2 fL (80.0-100.0); RBC 3.78 mil/uL (4.20-5.00); RDW 14.5 % (10.5-14.5); WBC 3.3 thou/uL (4.0-11.0)
[2018-05-10 11:53] LABS: CALCIUM 8.8 mg/dL (8.5-10.1); CREATININE 0.8 mg/dL (0.6-1.0); MAGNESIUM 1.7 mg/dL (1.8-2.4); POTASSIUM 3.3 mmol/L (3.5-5.1)
[2018-05-10] MEDS ORDERED: CEFDINIR300 MG PO (15:18)
[2018-05-10 15:39] VITALS: BP 151/95
--- NOTE | 2018-05-10 15:54 | NUR ---
PT IS TO DISHCARGE HOME THIS DAY WITH NO NEEDS. NO OTHER CM INTERVENTION INDICATED AT THIS TIME. CASE CLOSED.
--- NOTE | 2018-05-10 16:37 | NUR ---
PATIENT WAS DISCHARGED TO GO HOME WITH SELF CARE.IV WAS TAKEN OUT, GAUZE IN PLACE.PATIENT WAS GIVEN D/C PAPERWORK.PT HAD SOME SWELLING IN FEET, DOCTOR WAS NOTIFIED AND INSTRUCTED PATIENT TO ELEVATE FEET MUCH POSSIBLE AND SEE PRIMARY CARE DOCTOR.PATIENT WAS TAKEN DOWN TO FAMILY CAR VIA W/C BY TRANSPORTATION.PATIENT HAS ALLOF HER BELONGINGS.
[2018-05-11 22:07] LABS: ADENOVIRUS Negative (Negative); INFLUENZA A Negative (Negative); INFLUENZA B Negative (Negative); METAPNEUMOVIRUS Negative (Negative); PARAINFLUENZA 1 Negative (Negative); PARAINFLUENZA 2 Negative (Negative); PARAINFLUENZA 3 Negative (Negative); RHINOVIRUS Negative (Negative); RSV A Negative (Negative); RSV B Negative (Negative)
== END 2018-05-10 16:29 | disposition home or self-care (01) | DRG 682 ==
LOC: ER 08:21 → 4W 10:44 → EROBS 10:44 → 4W 11:12 → SICU 05-09 19:08 → ENTRNSPT 05-10 16:04 → SICU 05-10 16:29
PROVIDERS: Emergency Medicine; Internal Medicine; Nurse Practitioner; Specialist; ADMIT Hospitalist
DX: N17.9 Acute kidney failure, unspecified (principal); E43 Unspecified severe protein-calorie malnutrition; R50.9 Fever, unspecified; I10 Essential (primary) hypertension; E11.9 Type 2 diabetes mellitus without complications; E78.5 Hyperlipidemia, unspecified; E03.9 Hypothyroidism, unspecified; F32.9 Major depressive disorder, single episode, unspecified; E87.6 Hypokalemia; Z60.2 Problems related to living alone; K21.9 Gastro-esophageal reflux disease without esophagitis; D64.9 Anemia, unspecified; M54.16 Radiculopathy, lumbar region; Z79.82 Long term (current) use of aspirin; Z79.899 Other long term (current) drug therapy; Z88.8 Allergy status to other drugs, medicaments and biological substances; Z90.49 Acquired absence of other specified parts of digestive tract; Z90.710 Acquired absence of both cervix and uterus
CPT/HCPCS: 10045; 15002

== ENCOUNTER 2018-11-09 09:50 | Emergency (ER) | payer OTHER, BC ==
[~2018-11-09] VITALS: Ht 160 cm; Wt 90.7 kg
[~2018-11-09 09:50] MED LIST changes: +CEFDINIR300 MG PO; +POTASSIUM20 PO
[2018-11-09] MEDS ORDERED: NEURONTIN 300300 M1 PO (10:05)
[2018-11-09] MEDS ORDERED: MAXZIDE-25 MG1 EACH PO (10:08)
[2018-11-09] MEDS ORDERED: AMARYL2 MG PO (10:10)
[2018-11-09] MEDS ORDERED: LISINOPRIL-HCT1 EAC1 PO (10:10)
[2018-11-09] MEDS ORDERED: MAGOX 400400 MG PO (10:11)
[2018-11-09] MEDS ORDERED: CALCIUM 600 +1 EAC1 PO (10:12)
[2018-11-09 11:40] LABS: URINE BILIRUBIN NEGATIVE (Negative); URINE BLOOD TRACE (Negative); URINE CLARITY CLEAR; URINE COLOR YELLOW; URINE GLUCOSE-RANDOM* 3+ (Negative); URINE KETONES NEGATIVE (Negative); URINE LEUKOCYTES-REFLEX TRACE (Negative); URINE NITRITE-REFLEX NEGATIVE (Negative); URINE PROTEIN (DIPSTICK) NEGATIVE (Negative); URINE UROBILINOGEN 0.2 E.U./dl (0.2-1.0)
[2018-11-09 12:17] LABS: HEMATOCRIT 37.3 % (37.0-47.0); HEMOGLOBIN 12.7 gm/dL (12.0-15.0); MCH 30.8 pg (26.0-34.0); MCHC 34.1 g/dL (28.0-37.0); MCV 90.3 fL (80.0-100.0); RBC 4.13 mil/uL (4.20-5.00); RDW 13.1 % (10.5-14.5); WBC 4.9 thou/uL (4.0-11.0)
[2018-11-09 12:25] LABS: ANION GAP 5 mmol/L (7-16); BUN 20 mg/dL (7-18); CALCIUM 10.1 mg/dL (8.5-10.1); CHLORIDE 100 mmol/L (98-107); CO2 32 mmol/L (21-32); CREATININE 0.9 mg/dL (0.6-1.0); GLUCOSE 283 mg/dL (74-106); SODIUM 137 mmol/L (136-145)
[2018-11-09 12:34] LABS: TROPONIN-I <0.06 ng/mL (<0.06)
[2018-11-09 12:51] LABS: ABSOLUTE NEUTROPHILS 2.8 thou/uL (1.4-8.2); ATYPICAL LYMPHS 3 %; PLATELET COUNT 196 thou/uL (150-400); PLATELET ESTIMATE NORMAL
--- NOTE | 2018-11-09 13:48 | EKG ---
[address] [place] [address] ELECTROCARDIOGRAM REPORT Name: ANNETTE ISABEL Room #: [facility]#: [id number] Admission: 11/09/18 Attend Phys: Discharge: Date of : 44 Report #: [id number] THIS REPORT FOR: //name// [facility] ED Test Date: 2018-11-09 Test Time: 12:05:46 Pat Name: ANNETTE ISABEL Department: Room: Gender: F Senior Net Developer Architect: : [id number] Requested By: Ruperto [place] Order Number: [id number] MD: Prem Mckeon Measurements Intervals [place] Rate: 90 P: 25 WA: 191 QRS: -6 QRSD: 80 T: -13 QT: 443 QTc: 542 Interpretive Statements Sinus rhythm Inferior infarct, old Poor R-wave progression Nonspecific T-wave abnormality Compared to ECG 05/08/2018 08:48:48 Myocardial infarct finding still present Electronically Signed On 11-09-2018 13:48:23 CDT by Prem Mckeon [email or web address] <ELECTRONICALLY SIGNED> By: Prem Mckeon MD 11/09/18 1348 1205 04 Prem Mckeon MD /RUDY
[2018-11-09 14:13] VITALS: BP 164/88
== END 2018-11-09 14:15 | disposition home or self-care (01) ==
LOC: ER 09:50
PROVIDERS: Emergency Medicine
DX: R47.81 Slurred speech (principal); H53.8 Other visual disturbances; R53.1 Weakness; T42.6X5A Adverse effect of other antiepileptic and sedative-hypnotic drugs, initial encounter; I10 Essential (primary) hypertension; E11.9 Type 2 diabetes mellitus without complications; Z98.890 Other specified postprocedural states; Z88.6 Allergy status to analgesic agent; Y92.89 Other specified places as the place of occurrence of the external cause

== ENCOUNTER 2019-03-06 16:31 | Emergency (ER) | payer OTHER, BC ==
[~2019-03-06] VITALS: Ht 160 cm; Wt 90.7 kg
[~2019-03-06 16:31] MED LIST changes: +AMARYL2 MG PO; +CALCIUM 600 +1 EAC1 PO; +LISINOPRIL-HCT1 EAC1 PO; +MAXZIDE-25 MG1 EACH PO
[2019-03-06 18:03] LABS: ABSOLUTE NEUTROPHILS 7.9 thou/uL (1.4-8.2); BASOPHILS 0.2 % (0.0-2.0); EOSINOPHILS 0.8 % (0.0-3.0); HEMATOCRIT 32.5 % (37.0-47.0); HEMOGLOBIN 11.1 gm/dL (12.0-15.0); LYMPHOCYTES 2.6 % (24.0-44.0); MCH 31.4 pg (26.0-34.0); MCHC 34.1 g/dL (28.0-37.0); MCV 92.1 fL (80.0-100.0); PLATELET COUNT 182 thou/uL (150-400); POLYS 95.4 % (36.0-66.0); RBC 3.52 mil/uL (4.20-5.00); WBC 8.3 thou/uL (4.0-11.0)
[2019-03-06 18:12] LABS: ANION GAP 9 mmol/L (7-16); BUN 24 mg/dL (7-18); CALCIUM 9.1 mg/dL (8.5-10.1); CHLORIDE 102 mmol/L (98-107); CO2 29 mmol/L (21-32); CREATININE 1.6 mg/dL (0.6-1.0); GLUCOSE 210 mg/dL (74-106); POTASSIUM 3.4 mmol/L (3.5-5.1); SODIUM 140 mmol/L (136-145)
[2019-03-06 18:17] LABS: DIRECT BILIRUBIN < 0.1 mg/dL (<0.1-0.3); SGOT 53 U/L (15-37); SGPT 72 U/L (30-65); TOTAL BILIRUBIN 0.3 mg/dL (<0.1-1.0); TOTAL PROTEIN 7.5 g/dL (6.4-8.2)
[2019-03-06 18:36] LABS: URINE BILIRUBIN NEGATIVE (Negative); URINE BLOOD NEGATIVE (Negative); URINE CLARITY CLEAR; URINE COLOR YELLOW; URINE GLUCOSE-RANDOM* 3+ (Negative); URINE KETONES NEGATIVE (Negative); URINE LEUKOCYTES-REFLEX NEGATIVE (Negative); URINE NITRITE-REFLEX NEGATIVE (Negative); URINE PROTEIN (DIPSTICK) NEGATIVE (Negative); URINE SPECIFIC GRAVITY <= 1.005 (1.005-1.035); URINE UROBILINOGEN 0.2 E.U./dl (0.2-1.0)
[2019-03-06 21:06] VITALS: BP 134/64
== END 2019-03-06 21:16 | disposition home or self-care (01) ==
LOC: ER 16:31
PROVIDERS: Emergency Medicine
DX: B34.9 Viral infection, unspecified (principal); R50.9 Fever, unspecified; J02.9 Acute pharyngitis, unspecified; I10 Essential (primary) hypertension; E11.9 Type 2 diabetes mellitus without complications; Z88.6 Allergy status to analgesic agent; Z79.899 Other long term (current) drug therapy; Z98.890 Other specified postprocedural states

== ENCOUNTER → 2019-04-12 | Outpatient (CLI) | payer OTHER, BC ==
[~2019-04-12] VITALS: Ht 160 cm; Wt 92.7 kg
[~2019-04-12] MED LIST changes: +CLONIDINE HCL0.2 M2 PO; -CLONIDINE0.1 PO; +LISINOPRIL40 MG PO; +PROCARDIA XL60 MG PO
[2019-04-12 08:28] VITALS: BP 148/78
--- NOTE | 2019-04-12 08:49 | NUR ---
Pain Clinic Assessment: 1. History of Osteoarthritis: Right Upper Extremity Right Lower Extremity * BACK History of Rheumatoid Arthritis: Not Applicable 2. Height: 5 ft. 3 in. 160.0 cm. Weight: 204.4 lb. oz. 92.715 kg. Patient's BMI: 36.2 3. Vital Signs: BP: 148/78 Pulse: 80 Resp: 16 Temp: 02 Sat: 100 ECG Mon: 4. Pain Intensity: 2 5. Fall Risk: Dizziness: N Needs help standing or walking: N Fallen in the last 3 months: N Fall risk comments: 6. Patient on Blood Thinner: None 7. History of Hypertension: Y 8. Opioid Therapy greater than 6 weeks: N Opiate Contract Signed: 9. Risk Assessment Tool Provided: Opioid Risk Tool 10. Functional Assessment Tool: 31 11. Recreational Drug Use: Never Drug Type: Tobacco Use: Never Smoker Tobacco Type: Amount or Packs/day: How Many Years: Alcohol Use: No Frequency: Quant:
--- NOTE | 2019-04-18 22:13 | HPC ---
[facility] [address] [place] [address] PAIN MANAGEMENT CONSULTATION Name: ANNETTE ISABEL Room #: REG [facility] Saranya#: [id number] Admission: 04/12/19 Attend Phys: Wan Oleary MD Discharge: Date of : 44 Report #: [id number] THIS REPORT FOR: //name// CC: Lesly Oleary CHIEF COMPLAINT: Having increased low back pain and pain down into the leg. HISTORY: The patient is a 78-year-old black female who has been seen in the pain clinic. She does have a history of back pain. She has pain that radiates down into her leg and her ankle. Does note that her pain has been problematic for a number of years. She has had chronic pain since 1970s. She does have a history of spinal stenosis. Notes that her pain has been somewhat more problematic. Has pain that has been in the L5-S1 area with pain radiating down into her legs. No change in bowel or bladder function at this point. She notes that her pain is more problematic with standing. It has found that if she stands with 1 foot propped on a stool about 8-10 inches above the other that she is able to stand for longer period of time. Walking in the store, she leans forward on the cart. Prolonged standing upright can become quite problematic. She is unable to walk for long distances before the onset of pain, at which time she then sits down and her pain starts to ameliorate in about 5 minutes. ALLERGIES: No known drug allergies. CURRENT MEDICATIONS: Zestril 40 mg b.i.d., Procardia-XL 60 mg, magnesium 400 mg, Amaryl 2 mg b.i.d., Maxzide 25 mg, gabapentin 300 mg 4 times daily, clonidine 0.2 mg b.i.d., Lexapro 10 mg, metoprolol XL 100 mg, Farxiga 10 mg, iron 325 mg, amitriptyline 25 mg, Synthroid 25 mcg, Tylenol 500 mg 4 times daily, omeprazole 40 mg, Pravachol 40 mg. PAIN CLINIC ASSESSMENT/PQRS: 1. History of osteoarthritis, the patient has spinal stenosis, low back area. She is not being treated for rheumatoid arthritis. 2. Height 5 feet 3 inches, weight 204 pounds, BMI is 36.2. 3. Vital signs: Blood pressure 148/78, heart rate is 80, respiratory rate is 16, room air saturation 100%. 4. Pain intensity /10. 5. Fall history: The patient has not fallen in the last 3 months. 6. Blood thinner. The patient is not on a blood thinning medication. 7. Hypertension. The patient is being treated for hypertension. 8. Opioids greater than 6 weeks. The patient received medication from one source. 9. Risk assessment tool, low for opioid use. 10. Functional assessment tool . 11. Recreational drug use: The patient denies. 12. Tobacco: The patient denies use of tobacco. 13. Alcohol. The patient denies frequent use of alcoholic beverages. [facility] [address] [place] [address] PAIN MANAGEMENT CONSULTATION Name: ANNETTE ISABEL Room #: REG CLI [facility]#: [id number] Admission: 04/12/19 Attend Phys: Wan Oleary MD Discharge: Date of : 44 Report #: [id number] PHYSICAL EXAMINATION: GENERAL: The patient is a well-developed, well-nourished black female, appears her stated age. She is alert and oriented x 3. Her affect is appropriate. Speech is fluent. HEAD, EYES, EARS, NOSE, AND THROAT: Normocephalic, atraumatic. Extraocular eye muscles intact. Sclerae nonicteric. Mucous membranes are moist. Hearing within normal limits. HEART: Regular rate. ABDOMEN: Nontender. EXTREMITIES: Upper extremity muscle strength 5-/5 for the major muscle groups in the upper extremity. Lower extremity, the patient has pain and discomfort, which that radiates down to the L5-S1 dermatomal distribution with prolonged standing as well as with walking. IMPRESSION: 1. L5-S1 dermatomal distribution secondary to spinal stenosis. 2. Diabetes. 3. Hypertension. 4. Thyroid disease. 5. Stomach problems. 6. Joint disease. RECOMMENDATIONS: We discussed treatment options with the patient. At this juncture, I feel that use of a low dose of opioid medication might be helpful. We discussed the benefits of standing and with her leg on a small stool. This changes the dynamics of the pelvis. This opened up the low back area. We also discussed the use of a riding bicycle. This can be helpful because of the improvement in the spinal curvature with forward bending on a standardized riding bike. The patient will continue with her use of hydrocodone. We will have the patient try hydrocodone 5 mg 1 p.o. b.i.d. to help with her pain, particularly when she is going to undergo activities or do other activities at home that might exacerbate her back pain. A script for these medications have been provided. We would like to thank you for letting us to participate in her care. We hope she continues to improve. <ELECTRONICALLY SIGNED> By: Wan Oleary MD 04/18/19 2213 [id number] 1210 MD SHARON Leach
== END ==
LOC: PAIN 06:47
DX: M54.5 Low back pain (principal); E11.9 Type 2 diabetes mellitus without complications; I10 Essential (primary) hypertension; M48.07 Spinal stenosis, lumbosacral region; E07.9 Disorder of thyroid, unspecified; M25.9 Joint disorder, unspecified; Z79.899 Other long term (current) drug therapy

== ENCOUNTER → 2019-11-12 | Outpatient (CLI) | payer OTHER, BC | LOC: MRI 09:14 | PROVIDERS: ATTEND Otolaryngology | DX: I67.82 Cerebral ischemia (principal); G31.89 Other specified degenerative diseases of nervous system; M54.31 Sciatica, right side; J34.89 Other specified disorders of nose and nasal sinuses; H91.8X2 Other specified hearing loss, left ear ==

== ENCOUNTER → 2020-12-04 | Outpatient (CLI) | payer OTHER | LOC: SJCVCIMAG 07:29 | PROVIDERS: ATTEND Internal Medicine | DX: I08.8 Other rheumatic multiple valve diseases (principal); E78.5 Hyperlipidemia, unspecified; K21.9 Gastro-esophageal reflux disease without esophagitis; I10 Essential (primary) hypertension; E03.9 Hypothyroidism, unspecified; E11.9 Type 2 diabetes mellitus without complications; F41.9 Anxiety disorder, unspecified; Z87.891 Personal history of nicotine dependence; Z79.82 Long term (current) use of aspirin; Z79.84 Long term (current) use of oral hypoglycemic drugs; Z79.899 Other long term (current) drug therapy ==

== ENCOUNTER 2021-04-11 11:50 | Emergency (ER) | payer OTHER ==
[~2021-04-11] VITALS: Ht 160 cm; Wt 90.7 kg
[2021-04-11 11:51] VITALS: BP 192/92
[2021-04-11] MEDS ORDERED: NAPROSYN500 MG PO (12:12)
[2021-04-11] MEDS ORDERED: PREDNISONE 20 M20 M1 PO (12:12)
== END 2021-04-11 12:12 | disposition home or self-care (01) ==
LOC: ER 11:50
DX: M54.32 Sciatica, left side (principal); M79.605 Pain in left leg; I10 Essential (primary) hypertension; E11.9 Type 2 diabetes mellitus without complications; Z79.891 Long term (current) use of opiate analgesic; Z79.899 Other long term (current) drug therapy; Z88.8 Allergy status to other drugs, medicaments and biological substances